=== PATIENT | male | born 1980 | race American Indian/Alaskan Native ===

== ENCOUNTER 2020-11-26 18:11 | Emergency (ER) | payer MEDICAID ==
--- NOTE | 2020-11-27 01:02 | Emergency Department Report ---
ED Psych HPI - General Chief Complaint: Psych Stated Complaint: MENTAL HEALTH Time Seen by Provider: 11/27/20 00:58 Source: patient Mode of arrival: Ambulatory Limitations: No Limitations - History of Present Illness Initial Comments: Patient is a 40-year-old male who presents emergency room with complaints of suicidal ideations. Patient states he been depressed lately. Patient slept well for 3 days. He states his thoughts are worsening. Patient states that his plan will be to run into traffic. Patient states he has meds for anxiety and PTSD and he is compliant with his medications. Patient states he feels anxious and depressed. Patient denies hallucinations. Patient denies homicidal ideations. Patient denies recent travel. Patient denies recent international travel. Patient denies exposure to the novel coronavirus. Patient denies sick contacts. Patient denies fever and chills. Patient denies cough. Patient denies diarrhea. Patient denies coming in contact with anybody with symptoms of the novel coronavirus. MD Complaint: suicidal ideation, feels depressed -: Sudden Associated Psychiatric Symptoms: depression, suicidal ideation, racing thoughts History of same: Yes Quality: constant Improves With: none Worsens With: none Context: significant life stressor Associated Symptoms: denies: confusion, headache, shortness of breath, nausea, vomiting, syncope, insomnia If Self Harm: admits thoughts of, has plan - Related Data Home Medications Medication Instructions Recorded Confirmed Last Taken No Known Home Medications [No 11/27/20 11/27/20 Unknown Reported Home Medications] Allergies Allergy/AdvReac Type Severity Reaction Status Date / Time No Known Allergies Allergy Unverified 11/26/20 18:25 ED Review of Systems ROS: Stated complaint: MENTAL HEALTH Other details as noted in HPI Constitutional: denies: chills, fever Eyes: denies: eye pain, eye discharge, vision change ENT: denies: ear pain, throat pain Respiratory: denies: cough, shortness of breath, wheezing Cardiovascular: denies: chest pain, palpitations Endocrine: no symptoms reported Gastrointestinal: denies: abdominal pain, nausea, diarrhea Genitourinary: denies: urgency, dysuria Musculoskeletal: denies: back pain, joint swelling, arthralgia Skin: denies: rash, lesions Neurological: denies: headache, weakness, paresthesias Psychiatric: as per HPI, anxiety, depression, suicidal thoughts Hematological/Lymphatic: denies: easy bleeding, easy bruising ED Past Medical Hx - Past Medical History Previous Medical History?: Yes Hx Psychiatric Treatment: Yes (PTSD) - Surgical History Past Surgical History?: No - Family History Family history: no significant - Social History Smoking Status: Current Every Day Smoker Substance Use Type: Alcohol - Medications Home Medications: Home Medications Medication Instructions Recorded Confirmed Last Taken Type No Known Home Medications [No 11/27/20 11/27/20 Unknown History Reported Home Medications] ED Physical Exam - General Limitations: No Limitations General appearance: alert, in no apparent distress - Head Head exam: Present: atraumatic, normocephalic - Eye Eye exam: Present: normal appearance - ENT ENT exam: Present: mucous membranes moist - Neck Neck exam: Present: normal inspection - Respiratory Respiratory exam: Present: normal lung sounds bilaterally. Absent: respiratory distress - Cardiovascular Cardiovascular Exam: Present: regular rate, normal rhythm. Absent: systolic murmur, diastolic murmur, rubs, gallop - GI/Abdominal GI/Abdominal exam: Present: soft, normal bowel sounds - Rectal Rectal exam: Present: deferred - Extremities Exam Extremities exam: Present: normal inspection - Back Exam Back exam: Present: normal inspection - Neurological Exam Neurological exam: Present: alert, oriented X3 - Psychiatric Psychiatric exam: Present: depressed, flat affect, suicidal ideation - Skin Skin exam: Present: warm, dry, intact, normal color. Absent: rash ED Course Vital Signs 11/27/20 11/27/20 00:10 07:46 Temperature 98.9 F 97.9 F Pulse Rate 63 73 Respiratory 16 20 Rate Blood Pressure 105/68 150/84 [Left] O2 Sat by Pulse 100 Oximetry - Reevaluation(s) Reevaluation #1: Patient placed on a 1013. 11/27/20 01:00 Reevaluation #2: Patient is medically cleared. Patient will remain in the ER as an ER hold until the patient is cleared from a psychiatric standpoint by our psychiatry mental health team. Patient's final disposition will come from our psychiatry team. 11/27/20 05:44 ED Medical Decision Making - Lab Data Result diagrams: 11/27/20 01:04 11/27/20 01:04 - Medical Decision Making Patient is a 40-year-old male who presents emergency room with complaints of depression and suicidal ideation. Patient states he has a plan to run in traffic. Patient placed on a 1013 after initial evaluation. Patient had labs done. Patient labs were done for medical clearance. Patient's labs were essentially unremarkable. Patient is medically cleared. Patient will remain in the ER as an ER hold until the patient is cleared from a psychiatric standpoint by psychiatry mental health team. Patient about disposition will come from our psychiatry team. - Differential Diagnosis Suicidal ideations, depression, Critical care attestation.: If time is entered above; I have spent that time in minutes in the direct care of this critically ill patient, excluding procedure time. ED Disposition Clinical Impression: Mood disorder Disposition: DC-01 TO HOME OR SELFCARE Is pt being admited?: No Does the pt Need Aspirin: No Condition: Stable Additional Instructions: Professional and Agency Contacts To help Resolve Crises (05/02) [place] Crisis Line: Suicide Prevention Line: Crisis Text Line: Text START to 320363 Emergency: 911 Outpatient COMMUNITY Behavioral Health Resources: [facility]: [facility] [address], [place] [address] [facility] [address] [place] [address] Sunday thru Sunday - 8am - 5pm Call to schedule an assessment for mental health and substance abuse programs [facility] Address: [address] [place] [address] Sunday thru Sunday- 7am-2pm [facility] Address: [address] [place] [address] Sunday thru Sunday: 8:30AM-5PM Referrals: RADHA PHILLIPS MD [Primary Care Provider] - 3-5 Days Time of Disposition: 05:45
[2020-11-27 01:19] LABS: Basophils # (Auto) 0.1 K/mm3 (0.0-0.1); Basophils % (Auto) 1.3 % (0.0-1.8); Eosinophils # (Auto) 0.1 K/mm3 (0.0-0.4); Eosinophils % (Auto) 1.3 % (0.0-4.3); Hematocrit 43.5 % (35.5-45.6); Hemoglobin 14.8 gm/dl (11.8-15.2); Lymphocytes # (Auto) 2.4 K/mm3 (1.2-5.4); Lymphocytes % (Auto) 37.8 % (13.4-35.0); Mean Corpuscular HGB Conc 34 % (32-34); Mean Corpuscular Volume 90 fl (84-94); Monocytes # (Auto) 0.7 K/mm3 (0.0-0.8); Monocytes % (Auto) 10.9 % (0.0-7.3); Platelet Count 275 K/mm3 (140-440); Red Blood Count 4.82 M/mm3 (3.65-5.03); Red Cell Distribution Width 12.6 % (13.2-15.2)
[2020-11-27 01:41] LABS: BUN/Creatinine Ratio 11; Blood Urea Nitrogen 11 mg/dL (9-20); Calcium 9.2 mg/dL (8.4-10.2); Hemolysis Index 6
[2020-11-27 07:47] VITALS: BP 150/84
[2020-11-27 09:55] LABS: Bilirubin,Urine NEG (Negative); Blood,Urine NEG (Negative); Color,Urine Yellow (Yellow); Mucus,Urine FEW /HPF; Protein,Urine <15 mg/dL mg/dL (Negative)
[2020-11-27 10:05] LABS: Amphetamine Screen,Urine Negative; Benzodiazepines Screen,Urine Negative; Cocaine Screen,Urine Negative; Methadone Screen,Urine Negative; Opiate Screen,Urine Negative
[2020-11-27 10:33] LABS: Cannabinoid Screen,Urine Positive
[2020-11-27] MEDS ORDERED: cephALEXin 500 MG CAP PO SCH (11:00)
--- NOTE | 2020-11-27 11:15 | Event Note ---
Date: 11/27/20 S: Patient has no complaints. Denies SI, HI, hallucinations. O: Vital signs stable; patient is calm and cooperative A: Mood disorder P: 1013 rescinded and discharge recommended by psychiatry team
--- NOTE | 2020-11-27 14:44 | Consultation ---
History of Present Illness - Reason for Consult Consult date: 11/27/20 Reason for consult: MHE Requesting physician: MANE SCHMIDT III - History of Present Psychiatric Illness Per ED Provider: Patient is a 40-year-old male who presents emergency room with complaints of suicidal ideations. Patient states he been depressed lately. Patient slept well for 3 days. He states his thoughts are worsening. Patient states that his plan will be to run into traffic. Patient states he has meds for anxiety and PTSD and he is compliant with his medications. Patient states he feels anxious and depressed. Patient denies hallucinations. Patient denies homicidal ideations. 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 Per patient, patient reported his been having a week of rejection, financial stress and BP normal issues compliant with legal issues with one of his daughters mom. Patient stated that one of his daughter mother has been sending the courts after him from places to place even when he moves trying to serve him a warrant reports this has been making his life really stressful and difficult. He also endorses with that recently this week he was pulled over by the police even though it was not soft and excitation distribution can have created a stressful moment on him because he had flashbacks of going back to group home. Patient states that he does not feel suicidal at this moment, reports moving from [facility] and is trying to resume some of his outpatient psychiatric services and counseling services if possible in [place] and see if he can get help with housing situation. Denies having any acute suicidal thoughts or hearing voices at this moment. PAST PSYCHIATRIC HISTORY Diagnoses: Anxiety, PTSD, depression Suicide attempts or Self-harm behavior: None reported Prior psychiatric hospitalizations: None reported Substance Abuse history: Marijuana Previous psychiatric medications tried: None reported Outpatient treatment: yes in [place] PAST MEDICAL HISTORY: None reported Family Psychiatric History: None reported or documented SOCIAL HISTORY Marital Status: Single Living Arrangements: Homeless Employment Status: Employed Access to guns/weapons:None reported Education: High school History of Abuse: Emotional Legal History: Yes REVIEW OF SYSTEMS Constitutional: Negative for weight loss ENT: Negative for stridor Respiratory: Negative for cough or hemoptysis All other systems reviewed and are negative MENTAL STATUS EXAMINATION General Appearance and Behavior: Age appropriate, good hygiene, wearing appropriate clothes, good eye contact, cooperative polite with questioning. Cooperation: Participating/engaged Psychomotor Behavior: unremarkable and within normal limits Mood: Good Affect and affective range: congruent with mood Thought Process: Fluent/Logical, Thought Content: Within reality, Speech: Normal volume, Regular rate and rhythm, Intellectual Functioning: Average Suicidal Ideation: Denies SI Homicidal Ideation: Denies HI Impulse Control: Unimpaired Insight and Judgment: Normal insight and judgment, Memory: Normal, Attention: Normal, Orientation: Alert, oriented, Diagnoses: Assessment and Plan - Psychiatric problem (1) Mood disorder Current Visit: Yes Status: Acute F39 Treatment Plan Defer to case management MEDICATIONS: Risks, benefits and alternatives of medications discussed with the patient, questions answered and consent obtained from patient. PSYCHOTHERAPY: Supportive psychotherapy provided MEDICAL: Per primary team DELIRIUM PRECAUTIONS: Please re-orient patient frequently, keep lights on during the day, and minimize benzodiazepines and opiates as these medications could worsen patient's confusion. STRATEGY DIRECTOR: DISPOSITION: Do Not Recommend acute inpatient psychiatric hospitalization at this time. Case discussed with Dr. Alonso who agrees with current disposition LEGAL STATUS: 1013 rescinded FOLLOW-UP: Will sign off Thank you for the consult. Please contact with any questions and/or concerns. Medications and Allergies Allergies Allergy/AdvReac Type Severity Reaction Status Date / Time No Known Allergies Allergy Unverified 11/26/20 18:25 Home Medications Medication Instructions Recorded Confirmed Last Taken Type No Known Home Medications [No 11/27/20 11/27/20 Unknown History Reported Home Medications] Mental Status Exam - Vital signs Last Vital Signs Temp 97.9 F 11/27/20 07:46 Pulse 73 11/27/20 07:46 Resp 20 11/27/20 07:46 BP 150/84 11/27/20 07:46 Pulse Ox 100 11/27/20 00:10 Results Result Diagrams: 11/27/20 01:04 11/27/20 01:04 Abnormal lab results 11/27/20 11/27/20 11/27/20 Range/Units 01:04 01:04 01:04 RDW 12.6 L (13.2-15.2) % Lymph % (Auto) 37.8 H (13.4-35.0) % Zavala % (Auto) 10.9 H (0.0-7.3) % Urine WBC (Auto) (0.0-6.0) /HPF Salicylates < 0.3 L (2.8-20.0) mg/dL Acetaminophen 5.0 L (10.0-30.0) ug/mL 11/27/20 Range/Units 09:34 RDW (13.2-15.2) % Lymph % (Auto) (13.4-35.0) % Zavala % (Auto) (0.0-7.3) % Urine WBC (Auto) 76.0 H (0.0-6.0) /HPF Salicylates (2.8-20.0) mg/dL Acetaminophen (10.0-30.0) ug/mL All other labs normal. Assessment and Plan - Psychiatric problem (1) Mood disorder Current Visit: Yes Status: Acute
== END 2020-11-27 15:46 | disposition home or self-care (01) ==
LOC: ED 18:11
DX: F39 Unspecified mood [affective] disorder (principal); F17.200 Nicotine dependence, unspecified, uncomplicated
CPT/HCPCS: 36415; 80048; 80307; 80320; 81001; 85025; 87086; G0480